=== PATIENT | female | born 1985 | race Caucasian/White ===

== ENCOUNTER → 2020-09-18 16:03 | Outpatient (CLI) | payer OTHER, SELFPAY ==
[2020-09-18 17:37] LABS: Absolute Lymphocyte Count 2.74 X10^3/uL (0.83-4.51); Absolute Neutrophil Count 2.2 X10^3/uL (2.0-7.7); Basophil# 0.06 X10^3/uL; Eosinophil# 0.11 X10^3/uL; Eosinophils% 1.9 % (0-5); Hemoglobin 12.1 g/dL (12.0-15.0); Lymphocyte # 2.74 X10^3/ul (0.83-4.51); Lymphocyte % 47.2 % (19-41); Mean Corp Hgb Conc 31.8 g/dL (32-36); Mean Corpuscular Hgb 27.4 pg (27.0-32.0); Mean Platelet Vol. 13.4 fl (6.2-12.0); Monocyte# 0.65 X10^3/uL; Monocyte% 11.2 % (0-10); NRBC Flagged by Analyzer 0 % (0-5); Neutrophil # 2.22 X10^3/uL (2.7-7.7); Neutrophil % 38.4 % (47-70); Platelet Count 167 K/mm3 (150-450); RBC Distribution Width CV 13.3 % (11.6-14.6); RBC Distribution Width SD 41.8 fl (35.1-43.9); Red Blood Count 4.42 M/mm3 (4.2-5.4); White Blood Count 5.8 K/mm3 (4.4-11.0)
[2020-09-18 17:45] LABS: Erythrocyte Sedimentation Rate 1 mm/hr (0-30)
[2020-09-18 18:24] LABS: ALB/GLOB Ratio 1.2 RATIO (0.9-2.4); AST(SGOT) 19 U/L (15-37); Alanine Aminotransfer ALT/SGPT 29 U/L (13-56); Albumin, Serum 3.9 g/dL (3.2-5.0); Alkaline Phosphatase 78 U/L (45-117); Anion Gap 5 (5-15); BUN 9 mg/dL (7-18); BUN/Creat Ratio 11.1 RATIO (10-20); CRP < 2.90 mg/L (0.0-3.0); Calcium,Total 8.9 mg/dL (8.5-10.1); Chloride 105 mmol/L (98-107); Creatinine, Serum 0.81 mg/dL (0.55-1.02); EST Glomerular Filtration Rate 86 mL/min (>60); Est Glom Filt Rate - Afr Amer 104 mL/min (>60); Globulin 3.3 g/dL (2.2-4.2); Glucose 92 mg/dL (74-106); Potassium 3.9 mmol/L (3.5-5.1); Protein, Total 7.2 g/dL (6.4-8.2); Sodium Level 138 mmol/L (136-145); Thyroid Stim Hormone (TSH) 1.58 uIU/mL (0.358-3.74)
[2020-09-21 16:08] LABS: Endomysial Antibody IgA Negative (Negative)
[2020-09-21 18:47] LABS: Deamidated Gliadin IgA 5 units (0-19); Deamidated Gliadin IgG 3 units (0-19); Immunoglobulin A 225 mg/dL (87-352); t-Transglutaminase IgA <2 U/mL (0-3)
== END ==
PROVIDERS: Visit Provider Family Medicine
DX: K52.9 Noninfective gastroenteritis and colitis, unspecified (principal); R10.9 Unspecified abdominal pain
CPT/HCPCS: 36415; 80053; 82784; 83516; 84443; 85025; 85652; 86140; 86255

== ENCOUNTER → 2020-11-10 11:10 | Outpatient (CLI) | payer OTHER, SELFPAY ==
--- NOTE | 2020-11-10 11:20 | RAD_ITS ---
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 TECHNIQUE: 3 view(s) of the ankle. COMPARISON: None. FINDINGS: There is a fibroxanthoma of the lateral aspect of the distal fibular diaphysis. There is no demonstrated recent fracture of the distal tibia or fibula. Normal medial and lateral malleoli. There are prominent marginal osteophytes of the anterior tibiofibular articulation. There are small posterior tibiotalar intra-articular bodies. There is no demonstrated fracture of the visualized talus or calcaneus. There is subchondral sclerosis adjacent to the posterior subtalar and middle subtalar articulations without demonstrated joint space narrowing. There are dorsal osteophytes at the talonavicular articulation. There is anterior and lateral soft tissue swelling. RAD/Ankle min 3 Views IMPRESSION: Prominent marginal osteophytes of the tibiotalar articulation and tibiotalar intra-articular bodies. Dorsal osteophytes of the talonavicular articulation. Fibroxanthoma of the distal fibular diaphysis. Soft tissue swelling. No demonstrated recent fracture. Electronically Signed: Kali Castro MD at 12:16 EDT Tel , Service support ,
== END ==
PROVIDERS: PCP Family Medicine; Referring Provider Physician Assistant Surgical; Visit Provider Physician Assistant Surgical
DX: S90.01XA Contusion of right ankle, initial encounter (principal); X58.XXXA Exposure to other specified factors, initial encounter; Y93.9 Activity, unspecified; Y92.9 Unspecified place or not applicable; Y99.9 Unspecified external cause status
CPT/HCPCS: 73610

== ENCOUNTER → 2020-11-25 08:13 | Outpatient (CLI) | payer OTHER, SELFPAY ==
--- NOTE | 2020-11-25 08:20 | RAD_ITS ---
PROCEDURE: SMALL BOWEL SERIES DATE OF EXAMINATION: 11/25/2020. INDICATION: Female, 35 years old. Diarrhea. Abdominal pain and irritable bowel syndrome. PHYSICIAN: David Dickey M.D. FLUOROSCOPY TIME (if supplied): (0:01) minutes/seconds. 5 images were obtained. TECHNIQUE: Radiographic and fluoroscopic images were taken of the small intestine following the ingestion of barium. COMPARISON: None. FINDINGS: A preliminary supine KUB was obtained. There is an unremarkable bowel gas pattern. Calcified gallstones are seen. Moderate amount of fecal material is present throughout the colon. Phleboliths are present within the pelvis. An IUD is seen within the pelvis. The lung bases are unremarkable. The osseous structures are normal. The patient orally ingested approximately 12 ounces of thin barium Normal visualized fundus, body, and antrum of the stomach. Normal duodenal bulb, C-loop, and proximal jejunum. Normal visualized mucosal folds of the jejunum and ileum. There are no demonstrated dilatations, strictures, or masses of the small intestine. There is no mass displacement of the loops of small intestine. There is a normal motor pattern with barium reaching the colon within approximately 60 minutes. Spot films under fluoroscopic observation demonstrated a normal terminal ileum and ileocecal valve. RAD/Small Bowel Series Only IMPRESSION: Normal small bowel series. Calcified gallstones. Electronically Signed: David Dickey MD at 10:18 EDT , Service support ,
== END ==
PROVIDERS: PCP Family Medicine; Referring Provider Internal Medicine Gastroenterology; Visit Provider Internal Medicine Gastroenterology
DX: R19.7 Diarrhea, unspecified (principal); R10.9 Unspecified abdominal pain
CPT/HCPCS: 74250

== ENCOUNTER 2021-07-07 17:12 | Outpatient (CLI) | payer OTHER, SELFPAY ==
--- NOTE | 2021-07-07 17:15 | RAD_ITS ---
STUDY: X-RAY - LEFT KNEE REASON FOR EXAM: Female, 35 years old. Knee pain. TECHNIQUE: 4 view(s) of the knee. COMPARISON: None. FINDINGS: Normal visualized distal femur. Normal visualized proximal tibia and fibula. Slight lateral tilt of the patella sunrise view. Normal medial femorotibial compartment. Normal lateral femorotibial compartment. Normal patellofemoral articulation. The soft tissue structures are unremarkable. RAD/Knee 4 or More Views IMPRESSION: Slight lateral tilt of the patella on the sunrise view. No other abnormality present. Electronically Signed: Fermin Haney MD at 9:18 EST ,
== END 2021-07-07 23:59 | disposition home or self-care (01) ==
LOC: MTRAD 17:14
PROVIDERS: PCP Nurse Practitioner Family; Referring Provider Nurse Practitioner Family; Visit Provider Nurse Practitioner Family
DX: M25.562 Pain in left knee (principal)
CPT/HCPCS: 73564

== ENCOUNTER 2021-08-24 14:30 | Outpatient (RCR) | payer OTHER, SELFPAY ==
--- NOTE | 2021-08-11 11:04 | HP.PTEVAL ---
Patient's Visit Information DEEJAY REYNOLDS is a 35 year old F referred to Physical Therapy by Dr. Jorge Tobin MD with a diagnosis of L knee pain. Date of Evaluation: 08/11/21 Physical Therapist: Jay Baker, PT, ATC - Visit Plan Frequency: 1x/Week Duration: 2 Weeks Plan: Issue and instruct pt on HEP of core strengthening over next 2 visits - Subjective Pt reports she was shoveling show a couple months ago when she experienced severe L knee pain. Pt reports she had not had pain like that in the past. Pt notes this has resulted in her having difficulty with stair negotiation and simple chair transfers. Pt reports she has had xrays, which revealed laterally shifted meniscus. Pt reports she has had a consult with orthopedic which believes she may have torn meniscus. Pt reports the pain has improved since the date of injury, so her doctor has decided to have her do therapy instead of an MRI. L knee doesnt lock up or give out on her at this time. Occasional sleep difficulty secondary to pain. Pt reports she is limited with work requirements and general activity secondary to pain. 0/10 pain at rest, 3/10 pain at worst - Pain L knee Pain Intensity (Out of 10): 0 Pain Intensity Range: 3 - Objective Neuro: B LE sensation is WNL to light touch. B patellar reflex= 2/3. Palpation: Obvious clunk test with AROM. Pain along medial patella and lteral meniscus. No obvious swelling or deformity. ROM: L knee 0-127, R knee 0-140. MMT: R knee flex= 24, ext= 25; L knee flex= 24, ext= 25 #F. Special tests: sig knee valgus with forward lunge, mild pain with - Balance/Special Test Scores Lower Extremity Functional Score: 53 - Goals Goal 1:: I with HEP after 3 visits Goal Time Frame: 2 Weeks - Rehabilitation Potential Physical Therapy Diagnosis: L knee pain, weakness, and difficulty with squatting secondary to L knee sprain Rehabilitation Potential: Good - Anticipated Interventions Patient/Client Instruction: Educate patient on: Condition, Plan of Care For the Purpose of:: To improve self management Therapeutic Exercise to Include: Strength training, Dynamic Lumbar Stabilization For the Purpose of:: To decrease pain, To improve muscle performance and motor function Cryotherapy (ice pack, ice massage): Yes For the Purpose of:: To decrease pain Thank you for the opportunity to evaluate your patient. For Medicare and Medicare HMO plans, please review the plan of care and approve it. It will need to be FAXED BACK to us at [phone] for Medicare purposes. For Medicare only, by signing this I certify the plan of care. Please let me know if there are questions or concerns regarding this plan of care. Physician Signature: Date:
--- NOTE | 2021-08-24 15:20 | HP.PTDCSUM ---
It has been my pleasure to treat DEEJAY REYNOLDS referred by Dr. Jorge Tobin MD, with the diagnosis of L knee pain for a total of 3 visit(s). Discharge Date: Please see the following information for a summary of their discharge status. Subjective: No pain this date L knee Pain Intensity (Out of 10): 0 % Improvement: 80 Objective/Function: Pt is now I with HEP Goal 1:: I with HEP after 3 visits Plan: Discharge to HEP If there are questions or concerns regarding this patient's physical therapy, please feel free to call me at [phone]. Thank you for the referral of this patient. Sincerely, Jay Baker, PT, ATC Balance/Gait/Functional tests - Balance/Special Test Scores Lower Extremity Functional Score: 53
== END 2021-08-24 15:35 | disposition home or self-care (01) ==
LOC: PT 14:30
PROVIDERS: PCP Nurse Practitioner Family; Referring Provider Specialist; Visit Provider Specialist
DX: S83.8X2D Sprain of other specified parts of left knee, subsequent encounter (principal); M25.462 Effusion, left knee
CPT/HCPCS: 97110; 97161; 97164; 97530